=== PATIENT | female | born 2000 | race Caucasian/White ===

== ENCOUNTER 2024-01-31 12:14 | Emergency (ER) | payer OTHER ==
[~2024-01-31] VITALS: Ht 157.5 cm; Wt 72.1 kg
[2024-01-31 12:51] VITALS: BP 121/65; PULSE 81; RESP 18; TEMP 97; O2SAT 98
[2024-01-31 13:28] VITALS: BP 121/65; PULSE 81; RESP 18; TEMP 97; O2SAT 98
== END 2024-01-31 13:28 | disposition home or self-care (01) ==
LOC: MED 12:14
DX: Z34.91 Encounter for supervision of normal pregnancy, unspecified, first trimester (principal); Z3A.01 Less than 8 weeks gestation of pregnancy
CPT/HCPCS: 99284